=== PATIENT | female | born 2000 | race Caucasian/White ===

== ENCOUNTER → 2020-09-19 | Outpatient (CLI) | payer MEDICAID, SELFPAY ==
[2020-09-19 14:53] VITALS: BMI 26.6
[2020-09-23 22:01] LABS: HPV Reflexed? NOT INDICATED
== END | disposition home or self-care (01) ==
LOC: LABSPEC 16:28
PROVIDERS: Referring Provider Obstetrics & Gynecology; Visit Provider Obstetrics & Gynecology
DX: Z12.4 Encounter for screening for malignant neoplasm of cervix (principal)
CPT/HCPCS: 88175; G0145

== ENCOUNTER → 2020-09-26 10:43 | Outpatient (CLI) | payer MEDICAID, SELFPAY ==
[2020-09-19 13:41] VITALS: BMI 26.6
[2020-09-19 14:53] VITALS: BMI 26.6
--- NOTE | 2020-09-26 10:45 | US_ITS ---
STUDY: ULTRASOUND OF THE FEMALE PELVIS - COMPLETE REASON FOR EXAM: Female, 19 years old. PELVIC PAIN WITH INTERCOURSE AND MENSES. IUD PLACED IN 2017. LMP: 09/04/2020. TECHNIQUE: Transabdominal and Transvaginal TECHNICAL QUALITY: Adequate. COMPARISON: None. FINDINGS: The uterus is anteverted and is in a midline position. The uterus measures 7.1 x 6.1 x 3.6 cm. Suggestion of 2 subtle nabothian cysts. The endometrium measures 3.8 mm in thickness, and is hyperechoic. There is no demonstrated endometrial mass. There is no demonstrated myometrial mass. I.U.D. - The patient does have an I.U.D. The right ovary is visualized. The right ovary measures 1.9 x 2.3 x 1.9 cm. Within the right ovary there is a hypoechoic cystic structure with internal echoes and surrounding color flow most likely representing collapsing hemorrhagic versus corpus luteum cyst and measuring 0.9 x 2.8 x 1.9 cm. There is no visualized right adnexal mass or complex lesion. There is normal arterial and normal venous vascularity. The left ovary is visualized. The left ovary measures 1.9 x 1.1 x 1.5 cm. There is no left ovarian cyst or ovarian mass. There is no visualized left adnexal mass or complex lesion. There is normal arterial and normal venous vascularity. There is mild fluid in the cul-de-sac. The volume of the bladder was 184 ml. US/Transvaginal Non- IMPRESSION: Mild free fluid in the cul-de-sac. IUD in place, otherwise unremarkable female pelvis ultrasound. Electronically Signed: Zohra Kovacs MD at 0:39 EST , Service support ,
--- NOTE | 2020-09-26 10:45 | US_ITS ---
STUDY: ULTRASOUND OF THE FEMALE PELVIS - COMPLETE REASON FOR EXAM: Female, 19 years old. PELVIC PAIN WITH INTERCOURSE AND MENSES. IUD PLACED IN 2017. LMP: 09/04/2020. TECHNIQUE: Transabdominal and Transvaginal TECHNICAL QUALITY: Adequate. COMPARISON: None. FINDINGS: The uterus is anteverted and is in a midline position. The uterus measures 7.1 x 6.1 x 3.6 cm. Suggestion of 2 subtle nabothian cysts. The endometrium measures 3.8 mm in thickness, and is hyperechoic. There is no demonstrated endometrial mass. There is no demonstrated myometrial mass. I.U.D. - The patient does have an I.U.D. The right ovary is visualized. The right ovary measures 1.9 x 2.3 x 1.9 cm. Within the right ovary there is a hypoechoic cystic structure with internal echoes and surrounding color flow most likely representing collapsing hemorrhagic versus corpus luteum cyst and measuring 0.9 x 2.8 x 1.9 cm. There is no visualized right adnexal mass or complex lesion. There is normal arterial and normal venous vascularity. The left ovary is visualized. The left ovary measures 1.9 x 1.1 x 1.5 cm. There is no left ovarian cyst or ovarian mass. There is no visualized left adnexal mass or complex lesion. There is normal arterial and normal venous vascularity. There is mild fluid in the cul-de-sac. The volume of the bladder was 184 ml. US/Pelvic (Non ) IMPRESSION: Mild free fluid in the cul-de-sac. IUD in place, otherwise unremarkable female pelvis ultrasound. Electronically Signed: Zohra Kovacs MD at 0:39 EST , Service support ,
== END ==
PROVIDERS: Referring Provider Obstetrics & Gynecology; Visit Provider Obstetrics & Gynecology
DX: R10.2 Pelvic and perineal pain (principal)
CPT/HCPCS: 76830; 76856; 93976

== ENCOUNTER → 2020-09-27 08:42 | Outpatient (CLI) | payer MEDICAID, SELFPAY ==
[2020-09-19 13:41] VITALS: BMI 26.6
[2020-09-19 14:53] VITALS: BMI 26.6
--- NOTE | 2020-09-27 09:00 | US_ITS ---
STUDY: ULTRASOUND BREAST - RIGHT REASON FOR EXAM: Female, 19 years old. 2 lumps in the right breast. TECHNIQUE: Axial and longitudinal images of the RIGHT breast were performed with a high resolution ultrasound transducer. # OF IMAGES: 34 COMPARISON: None. FINDINGS: RIGHT Breast: There is a 2.5 cm x 2.1 cm x 1.9 cm hypoechoic solid nodule with evidence of posterior acoustical enhancement and vascularity at the 9 o''clock position of the breast at 3 cm from the nipple. A similar appearing nodule measuring 1.6 x 1.6 cm x 1.3 cm is seen in the retroareolar region. These may represent fibroadenomas. Biopsy is recommended. US/Breast Limited Unilateral IMPRESSION: 2 hypoechoic solid nodules with the posterior acoustical enhancement as described. The larger measures 2.5 cm x 2.1 DELMAR by 1.1 cm. This is at the 9 o''clock position breast at 3 cm from the nipple. Biopsy is recommended. ASSESSMENT CATEGORY: BIRADS Category 4: Suspicious - Biopsy Should Be Considered. A letter regarding these results will be sent to the patient by the facility within 30 days. Electronically Signed: Zurdo Saldivar, at 10:19 EST , Service support ,
== END ==
PROVIDERS: Referring Provider Obstetrics & Gynecology; Visit Provider Obstetrics & Gynecology
DX: N63.10 Unspecified lump in the right breast, unspecified quadrant (principal)
CPT/HCPCS: 76642

== ENCOUNTER → 2020-10-04 | Outpatient (CLI) | payer MEDICAID, SELFPAY ==
--- NOTE | 2020-10-04 | BRBX_PTH ---
PATIENT: JORDAN PEARSON LOC: [facility] U#:[id number] AGE/SX: 19/F ROOM: RE10/04/[address]: Dr. Marjorie Michelle MD : 2000 BED: DIS: 10/04/2020 SPEC #: [id number] RECD: 10/04/20 12:00 STATUS: DOLORES NATHAN #: [id number] VIKTOR: 10/04/20 00:[address]: Marjorie Michelle DEPT: SURGICAL PATHOLOGY RECD BY: Ranulfo Conrad ENTERED: 10/04/20 12:00 SP TYPE: BREAST BX OTHR DR: No Primary Care Phys Tissues: A - Right breast, NOS B - Right breast, NOS Procedures: Surgery Specimen Level IV HEADER OPERATION: Right breast biopsy x2 PRE-OP DIAGNOSIS: Right breast lump TISSUE SUBMITTED: A - Right breast 3 o'clock retroareolar, B - Right breast 3 o'clock, 3 cm from nipple FIXATION TIME: 10 hours MICROSCOPIC DIAGNOSIS A. Right breast, 3 o'clock, retroareolar, biopsy: Fibroadenoma/benign phyllodes tumor. Negative for atypia or malignancy. B. Right breast, 3 o'clock, 3 cm from nipple, biopsy: Fibroadenoma. Negative for atypia or malignancy. SJ:russ 10/05/20 COMMENT Correlation with clinical, radiologic findings and appropriate follow up are necessary. MICROSCOPIC DESCRIPTION Slides are reviewed. GROSS DESCRIPTION A - Received in fixative is one container labeled with the patient's name and designated right breast 3 o'clock. The specimen consists of multiple irregular and elongated fragments of light villa-yellow soft tissue that in aggregate measure 1.5 x 1 x 0.1 cm. The specimen is totally submitted in one cassette. B - Received in fixative is one container labeled with the patient's name and designated right breast 9 o'clock. The specimen consists of multiple irregular and elongated fragments of light villa-yellow soft tissue that in aggregate measure 1 x 1 x 0.1 cm. The specimen is totally submitted in one cassette. / AM:russ 10/04/20 TC:1 CPT: 05774 x2 ADDENDUM ADDENDUM ADDENDUM ADDENDUM ADDENDUM ADDENDUM ADDENDUM ADDENDUM ADDENDUM 10/25/2020 09:44 ADDENDUM 10/25/2020 09:44 ADDENDUM 10/25/2020 09:44 ADDENDUM 10/25/2020 09:44 ADDENDUM 10/25/2020 09:44 This addendum is added to incorporate an outside pathology consultation report. The case was examined at [facility] (#[id number]) and the following diagnosis was rendered. A. Cellular fibroadenoma. B. Fibroadenoma. Please see complete above mentioned consultation report in EMR
[2020-10-04 09:37] VITALS: BMI 25.0
== END | disposition home or self-care (01) ==
LOC: LABSPEC 11:36
PROVIDERS: Referring Provider Surgery; Visit Provider Surgery
DX: N63.10 Unspecified lump in the right breast, unspecified quadrant (principal)
CPT/HCPCS: 88305

== ENCOUNTER 2020-11-21 09:16 | Day surgery (SDC) | payer MEDICAID, SELFPAY ==
[2020-10-04 09:37] VITALS: BMI 25.0
[2020-11-21] VITALS (8 sets, daily range): BP systolic 105–134; BP diastolic 64–90; PULSE 84–112; RESP 16–18; TEMP 36.6–37.2; O2SAT 94–100; BMI 26.9
--- NOTE | 2020-11-21 05:00 | HP_ITS ---
Intake Intake Visit Reasons: DISCUSS SURGERY Chief Complaint: post breast surgery [employer] Required: No Is patient in pain?: No Allergies No Known Allergies Allergy (Verified 11/14/20 10:38) Is last menstrual period known: No Post menopausal: No Patient : No Subjective Details: Discussed with patient that with a second opinion for both right breast lesions were fibroadenoma. Patient states that the retroareolar 1 has been occasionally causing her some discomfort she was concerned about breast-feeding with having that there. Objective Details: Right breast about 3:00/at the areolar border mobile/firm mass about 1.5 cm, another mobile/firm mass about 2 cm at 9:00 3 cm from the nipple, mildly tender to palpation, no change in overlying skin. Assessment & Plan Problems 1. 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 Plan for excision of right breast fibroadenomas x2. Reviewed the procedure as well as risks including but not limited to bleeding, infection, initial nipple discharge after surgery. Also discussed with patient that potentially she could have issues breast-feeding afterwards but we would plan to avoid the the majority of the ducts retroareolar as possible when removing the fibroadenoma. Patient no further questions this time. Plan to schedule in November. Marjorie Michelle M.D. Pager: [phone] [facility] [address] [place] [address], [address] [place] [address] Office: [phone] Plan Detail Follow Up We will schedule excision of fibroadenomas x2. 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 There are no clinical changes since date of exam.
[2020-11-21 10:06] LABS: Internal QC Validated? YES +Cl - CLEAR BKGD; Pregnancy, Urine Negative Negative; Record Kit Lot#,Urine Preg 42077
[2020-11-21] MEDS: Lactated Ringers 1,000 ML 100 ML IV ×2 (10:21→11:45)
[2020-11-21] MEDS: Bupiv/Epi 0.25% 30 ML Vial (10:40)
[2020-11-21] MEDS: Cefazolin 2 GM in 0.9% Normal Saline 100 ML IV (11:00)
--- NOTE | 2020-11-21 11:00 | SOF_PTH ---
PATIENT: JRODAN PEARSON LOC: [facility] U#:[id number] AGE/SX: 20/F ROOM: RE11/21/[address]: Dr. Marjorie Michelle MD : 2000 BED: DIS: 11/21/2020 SPEC #: [id number] RECD: 11/21/20 12:34 STATUS: DOLORES RENicanor #: [id number] VIKTOR: 11/21/20 11:[address]: Marjorie Michelle DEPT: SURGICAL PATHOLOGY RECD BY: Jocelyn Simon ENTERED: 11/21/20 13:01 SP TYPE: SOFT TISS OTHR DR: No Primary Care Phys Tissues: A - Breast, NOS B - Breast, NOS Procedures: Surgery Specimen Level IV HEADER OPERATION: Excision fibroadenoma breast x2 PRE-OP DIAGNOSIS: Fibroadenoma right breast TISSUE SUBMITTED: A - Retroareolar at 4 o'clock fibroadenoma, B - 4 cm from nipple at 10 o'clock fibroadenoma MICROSCOPIC DIAGNOSIS A. Right breast, retroareolar region at 4 o'clock, excisional biopsy: Fibroadenoma. Changes of previous biopsy. B. Right breast, 4 cm from nipple at 10 o'clock, excisional biopsy: Fibroadenoma. AM:russ 11/22/2020 COMMENT Case has been reviewed in consultation with Dr. Deras who concurs with the above diagnosis. IDC:SJ MICROSCOPIC DESCRIPTION Slides are reviewed. GROSS DESCRIPTION A - Received in fixative is one container labeled with the patient's name and designated retroareolar at 4 o'clock fibroadenoma. The specimen consists of a nodular piece of villa soft tissue measuring 2 x 2 x 1.5 cm. The specimen is inked, serially sectioned and reveals villa, solid cut surfaces. The entire specimen is submitted in three cassettes. B - Received in fixative is one container labeled with the patient's name and designated 4 cm from nipple at 10 o'clock fibroadenoma. The specimen consists of a nodular piece of villa soft tissue measuring 3 x 3 x 2 cm. Sutures are noted, however, the specimen is not oriented. The specimen is inked, serially sectioned and reveals villa, solid cut surfaces without area of hemorrhage, necrosis or cystic degeneration. The entire specimen is submitted in six cassettes from one end to another end. / PHU:russ 11/21/20 TC:1 CPT: 42342 x2
--- NOTE | 2020-11-21 11:47 | PCM.OPRPT ---
Report of Operation Date of Procedure: 11/21/20 Pre-Operative Diagnosis: Right breast fibroadenoma x2 Post-Operative Diagnosis: Same Surgery/Procedure Performed:: Excision of right breast fibroadenoma x2 lodging manager: Sandra Benites Type of Anesthesia:: General/Supplemental Anesthesiologist: Mingo Valera Special Medications: Ancef 2 g IV x1 Specimen's removed: 1. Fibroadenoma retroareolar 4:00, 2. fibroadenoma 10:00 3 cm from the nipple Estimated Blood Loss (mL): < 10 cc Fluids Replaced: 1200 cc Description of Procedure: Indications: 20-year-old female with right breast fibroadenomas which were bothersome/painful especially the 1 retroareolar, patient wanted them excised. Description: Patient was brought into the operating room table placed supine. General anesthesia was induced. Timeout was completed verifying correct patient, procedure, site, positioning, special, prior to beginning procedure. Patient's right breast was prepped and draped in usual sterile fashion. The fibroadenomas were localized with palpation. For the first fibroadenoma which was retroareolar incision was made along the areolar border from 3:00 to 5:00 with a 15 blade scalpel.. This was deepened silk suture was placed for traction and the fibroadenoma. Electrocautery was used for excision. This fibroadenoma measured approximately 1.5 x 1.5 x 1.7 cm and was sent to pathology. The wound was irrigated and hemostasis was assured with electrocautery. A next fibroadenoma was done similarly this was located about 10:00 3 cm from the nipple a radial incision was made overlying the area with a 15 blade scalpel. This was deepened with electrocautery. Silk suture was used for traction on the fibroadenoma. This fibroadenoma measured approximately 2.5 x 2.75 x 2.5 cm and was sent to pathology. This space was closed using a interrupted 3-0 Vicryl suture after wound was irrigated. Hemostasis was assured. Incision closed with subdermal 3-0 Vicryl and skin was closed with 4 oh Monocryl running suture. The exofin glue was placed over incisions. An Hayden wraps were used to dress the area. Patient was taken to postanesthesia care unit in stable condition. - Complications none
--- NOTE | 2020-11-21 11:56 | PCM.DC.GS ---
Discharge Diet: Light diet - advance as tolerated Discharge Activity: May not drive while taking narcotic pain medications., May Shower Lifting Restrictions: > 20 lb w right arm x 1 week Additional Activity Instructions:: Wearing good compression bra for the first couple days and nights. Then okay to just wear during the day for the first week Call your doctor if your incision/area has: Continuous Slow Oozing, Sudden Increased Bleeding, Increased Pain/ Swelling, Increased Redness, Foul Smelling Discharge, Swelling at the incision site Call your doctor if you observe: Fever of 101 or Higher Allergies/Adverse Reactions: Allergies No Known Allergies Allergy (Verified 11/21/20 09:50) Medications to take at Discharge ibuprofen 800 mg tablet 800 mg PO Q8H PRN #30 tab 09/19/20 levonorgestrel 20 mcg/24 hours (6 yrs) 52 mg intrauterine device 1 device INTRAUTERINE ONCE 09/19/20 biotin 1 mg tablet 1 mg PO DAILY 10/04/20 Oxycodone HCl/Acetaminophen [Percocet 5/325] 1 tablet PO Q6H PRN PRN 3 Days #7 tablet 11/21/20 The following prescriptions were given: Oxycodone HCl/Acetaminophen [Percocet 5/325] 1 tablet PO Q6H PRN PRN 3 Days #7 tablet PRN Reason: Pain Transmission Status: Sent to [facility] Primary Care Physician: Care Physician,No Primary [Primary Care Provider] - Test Results: Test results from this visit will be discussed in further detail at your follow-up appointment, if applicable. Please Follow Up With: Marjorie Michelle MD - Pain concerns at 5:00 and on the weekends call [phone] with any concerns When: Call the office for a follow-up appointment in 2 weeks. Proposed Discharge Date: 11/21/20
[2020-11-21] MEDS: Acetaminophen 325 MG Tablet PO (13:48)
[2020-11-21] MEDS: oxyCODONE 5 MG Tablet PO (13:48)
== END 2020-11-21 15:00 | disposition home or self-care (01) ==
LOC: SDC 09:26 → AC 09:28
PROVIDERS: Anesthesiology; Referring Provider Surgery; Visit Provider Surgery
PROC: (CPT 19120; principal; 2020-11-21 10:45)
DX: D24.1 Benign neoplasm of right breast (principal); N64.4 Mastodynia; Z20.822 Contact with and (suspected) exposure to COVID-19
CPT/HCPCS: 00400; 19120 ×2; 81025; 87426; 88305; C9803; J7120; J2405

== ENCOUNTER → 2022-08-06 | Outpatient (CLI) | payer MEDICAID, SELFPAY ==
[2022-08-06 15:29] LABS: Absolute Lymphocyte Count 2.04 X10^3/uL (0.83-4.51); Absolute Neutrophil Count 5.6 X10^3/uL (2.0-7.7); Basophil# 0.05 X10^3/uL; Basophil% 0.6 % (0-1); Eosinophil# 0.45 X10^3/uL; Hematocrit 40.1 % (37-47); Hemoglobin 13.7 g/dL (12.0-15.0); Lymphocyte # 2.04 X10^3/ul (0.83-4.51); Lymphocyte % 22.7 % (19-41); Mean Corp Hgb Conc 34.2 g/dL (32-36); Mean Corpuscular Hgb 30.7 pg (27.0-32.0); Mean Corpuscular Volume 89.9 fL (81-99); Mean Platelet Vol. 9.7 fl (6.2-12.0); Monocyte# 0.78 X10^3/uL; Monocyte% 8.7 % (0-10); NRBC Flagged by Analyzer 0 % (0-5); Neutrophil # 5.61 X10^3/uL (2.7-7.7); Neutrophil % 62.6 % (47-70); Platelet Count 303 K/mm3 (150-450); RBC Distribution Width CV 12.1 % (11.6-14.6); RBC Distribution Width SD 40.1 fl (35.1-43.9); Red Blood Count 4.46 M/mm3 (4.2-5.4)
[2022-08-06 15:55] LABS: AST(SGOT) 15 U/L (15-37); Alanine Aminotransfer ALT/SGPT 23 U/L (13-56); Albumin, Serum 3.9 g/dL (3.2-5.0); Alkaline Phosphatase 85 U/L (45-117); Anion Gap 7 (5-15); BUN 10 mg/dL (7-18); BUN/Creat Ratio 9.8 RATIO (10-20); Calcium,Total 9.3 mg/dL (8.5-10.1); Chloride 107 mmol/L (98-107); Creatinine, Serum 1.02 mg/dL (0.55-1.02); EST Glomerular Filtration Rate 71 mL/min (>60); Est Glom Filt Rate - Afr Amer 86 mL/min (>60); Globulin 3.9 g/dL (2.2-4.2); Glucose 95 mg/dL (74-106); Potassium 3.9 mmol/L (3.5-5.1); Protein, Total 7.8 g/dL (6.4-8.2); Sodium Level 139 mmol/L (136-145)
== END | disposition home or self-care (01) ==
LOC: BIMLAB 13:51
PROVIDERS: Visit Provider Internal Medicine
DX: K29.70 Gastritis, unspecified, without bleeding (principal); R10.9 Unspecified abdominal pain
CPT/HCPCS: 36415; 80053; 85025

== ENCOUNTER → 2022-08-08 | Outpatient (CLI) | payer MEDICAID, SELFPAY ==
--- NOTE | 2022-08-08 09:21 | EKG12_ITS ---
Test Reason : PALPS Blood Pressure : / mmHG Vent. Rate : 088 BPM Atrial Rate : 088 BPM P-R Int : 120 ms QRS Dur : 090 ms QT Int : 372 ms P-R-T Axes : 010 004 018 degrees QTc Int : 450 ms Normal sinus rhythm with sinus arrhythmia Normal ECG Confirmed by MONTY BROWN, FLOR ([id number]), multimedia editor KAILEE MILLS ([id number]) on 08/09/2022 9:48:38 AM Referred By: Esther Garcia Confirmed By:FLOR MILLAN MD
== END | disposition home or self-care (01) ==
PROVIDERS: PCP Internal Medicine; Referring Provider Internal Medicine; Visit Provider Internal Medicine
DX: I10 Essential (primary) hypertension (principal)
CPT/HCPCS: 93005

== ENCOUNTER → 2022-09-17 | Outpatient (CLI) | payer MEDICAID, SELFPAY ==
[2022-09-17 12:36] LABS: T4 Free Direct 0.82 ng/dL (0.76-1.46); Thyroid Stim Hormone (TSH) 2.05 uIU/mL (0.358-3.74)
== END | disposition home or self-care (01) ==
LOC: BIMLAB 11:08
PROVIDERS: PCP Internal Medicine; Referring Provider Internal Medicine; Visit Provider Internal Medicine
DX: L65.9 Nonscarring hair loss, unspecified (principal)
CPT/HCPCS: 36415; 84439; 84443

== ENCOUNTER 2022-09-23 08:52 | Emergency (ER) | payer MEDICAID, SELFPAY ==
[2022-09-23 08:53] VITALS: BP 131/86; PULSE 98; RESP 16; TEMP 37.2; O2SAT 100; BMI 26.1
--- NOTE | 2022-09-23 09:20 | CT_ITS ---
STUDY: CT BRAIN WITHOUT CONTRAST REASON FOR EXAM: Female, 21 years old.severe headache SEVERE MCDUFFIE X 3 DAYS, HX-MIGRAINES RADIATION DOSAGE (If Supplied By Facility): CTDIvol = ( 44.99 ) mGy, DLP = ( 745.49 ) mGycm TECHNIQUE: Transaxial CT imaging of the brain was performed without administration of intravenous contrast material. Individualized dose optimization techniques were used for this CT. COMPARISON: None. FINDINGS: Normal soft tissue structures. Normal calvarium. Normal size ventricles and extra-axial spaces for the patient''s age. Normal white matter tracts of the cerebral hemispheres. Normal basal ganglia and thalami. Normal brainstem. Normal cerebellum. There is no intracranial hemorrhage. There are no findings of an acute ischemic infarction. Normal visualized paranasal sinuses. CT/Brain/Head without Contrast IMPRESSION: Normal unenhanced CT scan of the brain. Electronically Signed: Ayaz Arteaga MD at 10:19 EST ,
[2022-09-23] MEDS: Metoclopramide 10 MG/2 ML Vial IV (09:26)
[2022-09-23] MEDS: 0.9% Normal Saline 1,000 ML 999 ML IV (09:26)
[2022-09-23] MEDS: Ketorolac 30 MG/ML Syringe IV (09:26)
--- NOTE | 2022-09-23 09:26 | EX.ED.VIS.HA ---
HPI History of Present Illness Chief Complaint: Headache Informant: patient Onset/Context/Timing Onset: Days (3) Context: Gradual and Onset Timing: Continuous Quality -Headache: Positive for Throbbing Location: Bifrontal and right retro-orbital; radiates into occipital Current Severity: Severe Maximum Severity: Severe Worsened by: Light Relieved by: Nothing Associated Symptoms/Injury Associated Symptoms: Positive for Nausea, Blurred Vision and Photophobia; Negative for Fever, Vomiting, Sore Throat, Sinus Pressure, Numbness, Tingling or Visual Loss Injury - MCDUFFIE: Negative for Direct Trauma or Fall Narrative Narrative: Patient presents with a severe headache. She states she was at work 3 days ago, she works with children, she felt tired and within 30 minutes she started getting this headache, it was not severe suddenly, nor did she feel a thunderclap. However it became severe, to the point where her children making noise and light was really making the headache feel worse. She has not been able to get it to go away with [id number] medications in the last 3 days. She states she has never experienced a headache like this but admits that she has a history of migraines, she just has not had 1 in over a year, and cannot really remember what they felt like for her because of that. Last time she had to go to the ED for a headache was 4 years ago. Her mother has a history of a brain tumor she does not know what type but knows it is not malignant, there is no family history of cerebral aneurysms that the patient is aware of. She denies any peripheral neurologic symptoms, neck stiffness, fevers or chills, confusion. [facility] Medical History Abdominal pain Anxiety Gastritis GERD (gastroesophageal reflux disease) Hx of migraines Hypertension Lump of right breast Non-scarring hair loss Scoliosis Home Medications levonorgestrel 20 mcg/24 hours (8 yrs) 52 mg intrauterine device (Mirena) 1 device intrauterine ONCE 09/19/20 [History Last Taken Unknown] pantoprazole 40 mg tablet,delayed release 40 mg PO DAILY #30 tabs 09/20/22 [Rx Last Taken Unknown] sucralfate 1 gram tablet (Carafate) 1 g PO QACHS 2 weeks #56 tabs 09/20/22 [Rx Last Taken Unknown] metoclopramide HCl 10 mg tablet 10 mg PO Q6H PRN nausea or migraine #20 tabs 09/23/22 [Rx Last Taken Unknown] Allergy/AdvReac Type Severity Reaction Status Date / Time No Known Allergies Allergy Verified 09/23/22 08:52 Family History Mother Brain tumor Allergy to nuts Father Asthma Arthritis AA (alcohol abuse) Hypertension Grandmother Lung cancer Thyroid cancer Melanoma other (no known cerebral aneurysms) Surgical History History of use of contraceptive intrauterine device (IUD) Hx of right breast biopsy Status post breast lumpectomy Social History household members: spouse housing: house current occupational status: employed current occupation: Student and [employer] sexually active: Yes Smoking Status: Never smoker alcohol intake: current alcohol intake frequency: holidays/special occasions only details: occasionally substance use type: does not use caffeine: Yes what type of physical activity do you participate in: walking, running and weight training frequency: 3-4 times per week seatbelt use: always do you feel safe at home: Yes additional social history: -[place] Patient goes to [employer] and works at [employer] Constitutional Constitutional ED: Denies chills or fever(s) Eyes Eyes: Reports blurry vision; Denies diplopia ENT ENT ED: Denies ear pain, rhinorrhea or sore throat Cardiovascular Cardiovascular: Denies chest pain or palpitations Respiratory/Chest Respiratory/Chest: Denies cough or dyspnea Gastrointestinal Gastrointestinal: Reports nausea; Denies abdominal pain, diarrhea or vomiting Genitourinary Genitourinary ED: Denies dysuria or urinary frequency Musculoskeletal Musculoskeletal: Denies back pain or myalgias Integumentary Denies abscess or rash Neurologic Neurologic: Reports headache(s); Denies paresthesias or weakness EXAM Physical Exam Const Vital Signs: 09/23/22 08:53 Temperature 99.0 F Temperature Source Temporal Pulse Rate 98 Respiratory Rate 16 Blood Pressure 131/86 H Blood Pressure Mean 101 Pulse Ox 100 Oxygen Delivery Method Room Air Positive well nourished and well developed Constitutional Narrative: Smiling, conversive, pleasant, very well-appearing General Appearance ED: well developed and NAD HEENT Reports normocephalic and moist mucous membranes atraumatic Eyes PERRL, EOMs intact bilaterally and conjunctivae normal Eyes Narrative: photophobia Neck no lymphadenopathy, supple and no meningeal signs Neck Narrative: F ROM Resp normal respiratory effort and clear to auscultation bilaterally GI non-tender and non-distended Palpation: soft Extremity normal to inspection and full ROM Neuro oriented x3 and CN's II-XII intact bilaterally Sensorium / Orientation: awake and alert Speech: speech normal Gait (Neuro): normal gait Motor Exam: strength 5/5 throughout Psych mental status grossly normal Skin Lesions: no lesions Rashes: no rashes MDM MDM MDM Narrative Medical decision making narrative: Patient's symptoms and exam are consistent with migraine, but we did a head CT because of the fact that this is the worst headache she has ever had and she did have an occipital component. It is negative for subarachnoid hemorrhage or obvious radiopaque mass on unenhanced scan. Discussed that with her, she is feeling better after IV fluids, Toradol, Reglan, she did not get akathisia and she is comfortable going home. She used to be on a beta-alex to prevent migraines, if she continues to have more frequent ones she is encouraged to follow-up for reevaluation for this, and I will prescribe her Reglan to use at home as needed. Radiography Diagnostic Testing: Clinical Impression(s) from Imaging Studies Brain CT 09/23/22 09:20 IMPRESSION: Normal unenhanced CT scan of the brain. Electronically Signed: Ayaz Arteaga MD at 10:19 EST Reading Location ID and State: [facility] / [place] , Service support , Discharge Plan Triage Chief Complaint: Headache ED Provider: Nelson Sharp Dx/Rx/DC Orders Clinical Impression: Headache, migraine Instructions: ED, Migraine (Classical) Prescriptions: New metoclopramide HCl [metoclopramide HCl] 10 MG tablet 10 mg PO Q6H PRN (Reason: nausea or migraine) Qty: 20 0RF No Action levonorgestrel 20 mcg/24 hours (5 yrs) 52 mg intrauterine device 20 mcg/24 hours (5 yrs) 52 mg intrauterine device 1 device intrauterine ONCE Rx Instructions: as a single dose sucralfate [Carafate] 1 gram tablet 1 g PO QACHS 14 Days Qty: 56 2RF pantoprazole 40 mg tablet,delayed release (DR/EC) 40 mg PO DAILY Qty: 30 6RF Primary Care Provider: Esther Garcia Referrals: Esther Garcia MD [Primary Care Provider] - 3-5 Days if not improving Disposition Disposition: Home, Self Care
[2022-09-23 11:20] VITALS: BP 127/82; PULSE 70; RESP 16; O2SAT 99
== END 2022-09-23 11:25 | disposition home or self-care (01) ==
PROVIDERS: Emergency Provider Emergency Medicine; PCP Internal Medicine; Visit Provider Emergency Medicine
DX: G43.909 Migraine, unspecified, not intractable, without status migrainosus (principal); I10 Essential (primary) hypertension
CPT/HCPCS: 70450; 96361; 96374; 96375; 99283; J7030; A4216

== ENCOUNTER 2022-10-03 07:42 | Day surgery (SDC) | payer MEDICAID, SELFPAY ==
--- NOTE | 2022-10-03 07:49 | HP.PCM_ITS ---
History and Physical Date of Admission: 10/03/22 Date of Service:? 09/20/22 MR#: [id number] Acct: [id number] Name:JORDAN CASANOVA Rep #: [id number] : 2000 ? ? Provider: Dr. Marjorie Michelle MD Age/Sex:? 21/F ? ? [place] [facility] [place] [facility] [place]: Signed Intake Vital Signs ? 08/06/2213:25 09/20/2214:05 Height 5 ft 5 in 5 ft 5 in Weight: ? 159 lb BMI ? 26.4 BP ? 124/83 H Blood Pressure Location ? Rt brachial Position ? Sitting Respiration ? 16 Pulse ? 86 Pulse Source ? Monitor Temp ? 97.8 F Temp Source ? Temporal Pulse Oximetry (%) ? 100 Oxygen Delivery Method ? 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 Abdominal pain Anxiety Gastritis GERD (gastroesophageal reflux disease) Hx of migraines Hypertension Lump of right breast Non-scarring hair loss Scoliosis Surgical History? History of use of contraceptive intrauterine device (IUD) Hx of right breast biopsy Status post breast lumpectomy Family History?(Updated 09/20/22 @ 14:00 by Shanon Saturday) Mother Brain tumor Allergy to nutsFather Asthma Arthritis AA (alcohol abuse) HypertensionGrandmother Lung cancer Thyroid cancer Melanoma Social History? household members:? spouse housing:? house current occupational status:? 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 Yes Smoking Status:? Never smoker alcohol intake:? current alcohol intake frequency: holidays/special occasions only details:? occasionally substance use type:? does not use caffeine:? Yes what type of physical activity do you participate in:? walking, running and weight training frequency:? 3-4 times per week seatbelt use:? always do you feel safe at home:? Yes additional social history:? -[place] Patient goes to [employer] and works at [employer] ? HPI HPI HPI: 21-year-old female presents due to epigastric pain and reflux.? Patient states that this has been ongoing over the last 7 months.? Patient states for the first 5 months she states his controlled fairly well with Pepto-Bismol and Tums.? Patient states it was worse over the last 2 months.? Patient was started on omeprazole 40 mg p.o. daily August 06 by her PCP.? Patient states that her reflux symptoms with burning up her esophagus has improved however she still has the epigastric pain occasional burning and bloating.? Patient states that the pain is premature constant 3/7 and can get up to a 7/10 in the epigastric region .? Patient's never had a previous EGD.? Patient's PCP did call him Carafate however currently her pharmacy is unable to feel this due to her backorder. ROS General General: No weight change, appetite, fatigue, colon cancer, breast cancer or weakness HEENT HEENT: No difficulty swallowing, eye injury, eye surgery, swollen glands or hoar seness Endo Endocrine: No thyroid disease, diabetes mellitus, thyroid cancer, Hair loss, heat intolerance or cold intolerance Skin Skin: No rash or changing moles Musc Musculoskeletal: No back problems, arthritis, rheumatoid arthritis, gout or joint pain Cardio Cardiovascular: No murmur, pacemaker, heart disease, atrial fibrillation, high blood pressure, heart attack, heart stent, palpitations, shortness of breat with exertion or chest pain Psych Psychiatric: No depression, anxiety or hearing voices Resp Respiratory: No shortness of breath, No sleep apnea, No cough, No COPD, No asthma, No emphysema and No wheezing Gastro Gastrointestinal: Yes abdominal pain, Yes nausea or vomiting, No diarrhea, No constipation, No blood in stool, Yes acid reflux, No hemorrhoids, No ulcers, No gallbladder problem and No black,tarry stools Nathan Hematologic: No blood thinners, No blood disorders, No bleeding, No anemia and No blood clots Neuro Neurologic: No system reviewed and no additional complaints, except as documented, No as per HPI, No abnormal gait, No abnormal hearing, No abnormal movements, No abnormal speech, No behavioral changes, No burning sensations, No confusion, No convulsions, No disequilibrium, No dizziness, No localized weakness, No frequent falls, No headache(s), No lack of coordination, No loss of vision, No memory loss, No numbness, No other visual disturbances, No radicular pain, No restless legs, No sensory deficit, No syncope, No tingling, No tremor(s), No weakness and No other Exam Const General: cooperative, healthy appearing and no acute distress HENMT Head: normal to inspection Resp Effort & Inspection: normal respiratory effort Cardio Rate: regular rate GI Inspection: non-distended Palpation: soft, no guarding, no hernias and nontender Skin General: no rashes or lesions noted Neuro General: patient oriented x3 Extrem General: no clubbing, cyanosis or edema Psych Affect: normal affect Assessment and Plan Assessment and Plan (1) GERD (gastroesophageal reflux disease): ?Status:?Chronic ? ? ? Medications: New pantoprazole 40 mg? PO DAILY 30 tabs 6RF ? ? Refilled sucralfate (Carafate) 1 g? PO QACHS 2 weeks 56 tabs 2RF ? ? Discontinued omeprazole ?? Discontinued Reason:? Order Changed 40 mg? PO DAILY 90 caps 1RF ? ? Plan Did change patient from omeprazole 40 mg to Protonix 40 mg daily.? Also was able to call the Carafate into her pharmacy at the hospital as they do have it in stock. I have discussed the above with the patient. I have offered the patient esophagogastroduodenoscopy for evaluation. I have explained the risks/benefits of the procedure and described the procedure.? I have discussed the risks with the patient, including but not limited to:? infection, bleeding, perforation of the GI tract requiring emergency surgery, inability to complete the procedure, injury to any internal organs, complications of anesthesia, etc. - the patient understands and agrees to proceed. I have answered all the patient's questions to the patient's satisfaction and the patient has no further questions. Marjorie Michelle M.D. Pager: [phone] [facility] [address] [place] [address], [facility], [address] [place] [address] Office: [phone] Coding Level of Care Code Off vis,est,level 3 Diagnoses GERD (gastroesophageal reflux disease)? K21.9 09/20/22 1624 <Electronically signed by Marjorie Michelle MD> Date Marjorie Michelle MD
[2022-10-03] MEDS: Lactated Ringers 1,000 ML 15 ML IV (08:14)
[2022-10-03 08:16] VITALS: BP 110/71; PULSE 85; RESP 18; TEMP 36.4; O2SAT 100; BMI 25.6
[2022-10-03 08:17] LABS: Internal QC Validated? YES +Cl - CLEAR BKGD; Pregnancy, Urine Negative Negative
--- NOTE | 2022-10-03 09:30 | IMM_PTH ---
PATIENT: JORDAN PEARSON LOC: EN U#:[id number] AGE/SX: ROOM: RE10/03/[address]: Dr. Marjorie Michelle MD : 2000 BED: DIS: 10/03/2022 SPEC #: [id number] RECD: 10/03/22 12:24 STATUS: DOLORES REQ #: [id number] VIKTOR: 10/03/22 09:[address]: Marjorie Michelle DEPT: IMMUNOHISTOCHEMISTRY RECD BY: Keysha Mckenzie ENTERED: 10/03/22 12:25 SP TYPE: IMMUNO OTHR DR: Dr. Esther Garcia MD Tissues: A - Stomach, NOS Procedures: H Pylori (initial) PHYSICIAN & [place] [id number] SPECIMEN INFORMATION: Tissue Source: A ? Antrum biopsy Clinical Info: GERD Specimen Number: [id number] CPT code: 48205 METHODOLOGY: Deparaffinized sections of prefer/formalin-fixed tissue or PAP/DQ stained slides are incubated with monoclonal/polyclonal antibodies/oligonucleotide probes. Localization is made via biotin free immunoperoxidase method. Appropriate controls are performed and reacted as expected. Results on target cell population are indicated in the following table: RESULTS: ANTIBODY / CLONE RESULT Block A H Pylori (polyclonal) negative These tests were developed and their performance characteristics determined by [facility]. They may not have been cleared or approved by the U.S. Food and Drug Administration. The FDA has determined that such clearance or approval is not necessary. The above immunohistochemical/dualISH markers are ordered and reviewed by the Pathologist. INTERPRETATION: A. Antrum, biopsy: Negative for Helicobacter pylori organisms. SJ:russ 10/05/2022
--- NOTE | 2022-10-03 09:30 | EGD_PTH ---
PATIENT: JORDAN PEARSON LOC: EN U#:[id number] AGE/SX: ROOM: RE10/03/[address]: Dr. Marjorie Michelle MD : 2000 BED: DIS: 10/03/2022 SPEC #: [id number] RECD: 10/03/22 10:34 STATUS: DOLORES RENicanor #: [id number] VIKTOR: 10/03/22 09:[address]: Marjorie Michelle DEPT: SURGICAL PATHOLOGY RECD BY: Jocelyn Simon ENTERED: 10/03/22 11:10 SP TYPE: EGD BIOPSY OT DR: Dr. Esther Garcia MD Tissues: A - Gastric mucous membrane B - Stomach, NOS Procedures: Special Stain Group II Surgery Specimen Level IV Alcian Blue/PAS (control) HEADER OPERATION: EGD ([employer] [facility] [employer]) with biopsies PRE-OP DIAGNOSIS: GERD TISSUE SUBMITTED: A - Antrum biopsy for H. pylori and histology, B - Gastroesophageal junction biopsy MICROSCOPIC DIAGNOSIS A. Antrum, biopsy: Moderate chronic gastritis. See comment. B. Gastroesophageal junction, biopsy: Fragments of gastric mucosa with chronic inflammation. Intestinal metaplasia (goblet cell metaplasia) not identified. See comment. SJ:rg 10/05/2022 COMMENT A. Inflammatory cell infiltrate predominantly consists of eosinophils. The results of immunohistochemistry for Helicobacter pylori will be reported separately ([id number]). B. Alcian blue/PAS stain with matched control is used in the evaluation of the specimen. MICROSCOPIC DESCRIPTION Slides are reviewed. GROSS DESCRIPTION A - Received in fixative is one container labeled with the patient's name and designated antrum biopsy. The specimen consists of two irregular fragments of light villa soft tissue that in aggregate measure 0.5 x 0.5 x 0.1 cm. The specimen is totally submitted in one cassette. B - Received in fixative is one container labeled with the patient's name and designated GE junction biopsy. The specimen consists of two irregular fragments of light villa soft tissue that in aggregate measure 0.5 x 0.2 x 0.1 cm. The specimen is totally submitted in one cassette. / PHU:russ 10/03/2022 TC:3 CPT: 16683 x2, 14813
[2022-10-03 10:30] VITALS: BP 110/71; BP 111/68; PULSE 85; RESP 16; TEMP 37.3; O2SAT 98
--- NOTE | 2022-10-03 10:34 | OP.EGD_ITS ---
Patient Name: Keyla Carranza Procedure Date: 10/03/2022 10:12 AM Date of : 2000 Age: 21 Procedure: Upper GI endoscopy Indications: Epigastric abdominal pain, Heartburn Providers: Marjorie Michelle MD Referring MD: Esther Garcia MD Medicines: Monitored Anesthesia Care Patient Profile: This is a 21 year old female. Complications: No immediate complications. Procedure: Pre-Anesthesia Assessment: - Prior to the procedure, a History and Physical was performed, and patient medications and allergies were reviewed. The patient's tolerance of previous anesthesia was also reviewed. The risks and benefits of the procedure and the sedation options and risks were discussed with the patient. All questions were answered, and informed consent was obtained. Prior Anticoagulants: The patient has taken no previous anticoagulant or antiplatelet agents. ASA Grade Assessment: Per anesthesia. After reviewing the risks and benefits, the patient was deemed in satisfactory condition to undergo the procedure. After obtaining informed consent, the endoscope was passed under direct vision. Throughout the procedure, the patient's blood pressure, pulse, and oxygen saturations were monitored continuously. The gastroscope was introduced through the mouth, and advanced to the second part of duodenum. The upper GI endoscopy was accomplished without difficulty. The patient tolerated the procedure well. Scope In: 10:18:03 AM Scope Out: 10:23:45 AM Total Procedure Duration Time 0 hours 5 minutes 42 seconds Findings: The Z-line was irregular and was found 40 cm from the incisors. Biopsies were taken with a cold forceps for histology. Localized moderate mucosal changes characterized by altered texture were found in the gastric antrum. Biopsies were taken with a cold forceps for histology. Biopsies were taken with a cold forceps for Helicobacter pylori cultures. The cardia and gastric fundus were normal on retroflexion. The examined duodenum was normal. Impression: - Z-line irregular, 40 cm from the incisors. Biopsied. - Texture changed mucosa in the antrum. Biopsied. - Normal examined duodenum. Recommendation: - Await pathology results. - Discharge patient to home. - Resume previous diet. - Continue present medications. - Use Protonix (pantoprazole) 40 mg PO BID for 1 week. Procedure Code(s): --- Professional --- 04001, Esophagogastroduodenoscopy, flexible, transoral; with biopsy, single or multiple Diagnosis Code(s): --- Professional --- K22.8, Other specified diseases of esophagus K31.89, Other diseases of stomach and duodenum R10.13, Epigastric pain R12, Heartburn CPT copyright 2017 [employer] [employer]. All rights reserved. The codes documented in this report are preliminary and upon ed special education teacher review may be revised to meet current compliance requirements. MD Marjorie Bueno MD 10/03/2022 10:33:49 AM This report has been signed electronically. Number of Addenda: 0 Note Initiated On: 10/03/2022 10:12 AM
[2022-10-03 10:35] VITALS: BP 105/63; BP 110/71; PULSE 83; RESP 16; O2SAT 94
--- NOTE | 2022-10-03 10:35 | OP.CCLET_ITS ---
10/03/2022 Esther Garcia MD [address] [place] [address] [place] [address] Re : Upper GI endoscopy procedure for Keyla Carranza Dear Dr. Garcia This procedure was performed on Monday, October 03, 2022. My impressions and recommendations are as follows: Impressions : - Z-line irregular, 40 cm from the incisors. Biopsied. - Texture changed mucosa in the antrum. Biopsied. - Normal examined duodenum. Recommendations : - Await pathology results. - Discharge patient to home. - Resume previous diet. - Continue present medications. - Use Protonix (pantoprazole) 40 mg PO BID for 1 week. My findings are described in the full procedure note, which is enclosed. If I can be of further assistance, please feel free to contact me at Doctor phone number(s): , Work: . Sincerely, MD Marjorie Bueno MD 10/03/2022 10:33:49 AM This report has been signed electronically.
[2022-10-03 10:40] VITALS: BP 110/71; BP 89/66; PULSE 58; RESP 16; O2SAT 57
[2022-10-03 10:45] VITALS: BP 103/65; BP 110/71; RESP 16; TEMP 36.6; O2SAT 99
[2022-10-03 11:05] VITALS: BP 110/71
== END 2022-10-03 11:30 | disposition home or self-care (01) ==
LOC: EN 07:43 → AC 07:43
PROVIDERS: Anesthesiology; PCP Internal Medicine; Referring Provider Internal Medicine; Visit Provider Surgery
PROC: 0DJ08ZZ Inspection of Upper Intestinal Tract, Via Natural or Artificial Opening Endoscopic (ICD-10-PCS; CPT 43235; principal; 2022-10-03 09:25)
DX: K21.9 Gastro-esophageal reflux disease without esophagitis (principal); K29.50 Unspecified chronic gastritis without bleeding; F41.9 Anxiety disorder, unspecified; I10 Essential (primary) hypertension; M41.9 Scoliosis, unspecified; Z79.899 Other long term (current) drug therapy
CPT/HCPCS: 43239; 81025; 88305; 88313; 88342; J7120; J2405

== ENCOUNTER → 2025-02-10 | Outpatient (CLI) | payer BC, SELFPAY ==
[2025-02-10 16:45] LABS: Absolute Lymphocyte Count 2.06 X10^3/uL (0.83-4.51); Absolute Neutrophil Count 3.7 X10^3/uL (2.0-7.7); Basophil# 0.02 X10^3/uL; Basophil% 0.3 % (0-1); Eosinophil# 0.46 X10^3/uL; Eosinophils% 6.7 % (0-5); Hematocrit 35.8 % (37-47); Hemoglobin 12.6 g/dL (12.0-15.0); Lymphocyte # 2.06 X10^3/ul (0.83-4.51); Lymphocyte % 29.9 % (19-41); Mean Corp Hgb Conc 35.2 g/dL (32-36); Mean Corpuscular Hgb 30.3 pg (27.0-32.0); Mean Corpuscular Volume 86.1 fL (81-99); Mean Platelet Vol. 8.9 fl (6.2-12.0); Monocyte# 0.59 X10^3/uL; Monocyte% 8.6 % (0-10); NRBC Flagged by Analyzer 0 % (0-5); Neutrophil # 3.74 X10^3/uL (2.7-7.7); Neutrophil % 54.2 % (47-70); Platelet Count 251 K/mm3 (150-450); RBC Distribution Width CV 12.2 % (11.6-14.6); RBC Distribution Width SD 38.8 fl (35.1-43.9); Red Blood Count 4.16 M/mm3 (4.2-5.4); White Blood Count 6.9 K/mm3 (4.4-11.0)
[2025-02-10 17:13] LABS: Ferritin 121 ng/mL (22-378)
[2025-02-10 17:59] LABS: ALB/GLOB Ratio 1.5 RATIO (0.9-2.4); AST(SGOT) 22 U/L (<=31); Alanine Aminotransfer ALT/SGPT 14 U/L (<=34); Albumin, Serum 4.6 g/dL (3.5-5.0); Alkaline Phosphatase 70 U/L (35-104); Anion Gap 12 (5-15); BUN 12 mg/dL (4-19); BUN/Creat Ratio 15.2 RATIO (10-20); Calcium,Total 9.6 mg/dL (7.6-11.0); Carbon Dioxide 24.2 mmol/L (21.0-32.0); Chloride 105 mmol/L (98-108); Creatinine, Serum 0.77 mg/dL (0.70-1.20); EST Glomerular Filtration Rate 109 (>60); Globulin 3.1 g/dL (2.2-4.2); Glucose 94 mg/dL (70-99); Potassium 4.3 mmol/L (3.3-5.1); Protein, Total 7.7 g/dL (5.9-8.4); Sodium Level 141 mmol/L (133-145); Total Bilirubin 0.31 mg/dL (0.00-1.30)
[2025-02-10 19:14] LABS: Iron 56 ug/dL (50-170); Iron Binding Capacity,Total 257 ug/dL (250-450); Iron Binding Capacity,Unsat 201 ug/dL (228-428)
== END | disposition home or self-care (01) ==
LOC: BIMLAB 15:54
PROVIDERS: PCP Internal Medicine; Referring Provider Internal Medicine; Visit Provider Internal Medicine
DX: Z00.00 Encounter for general adult medical examination without abnormal findings (principal); L65.9 Nonscarring hair loss, unspecified; K21.9 Gastro-esophageal reflux disease without esophagitis
CPT/HCPCS: 36415; 80053; 82728; 83540; 83550; 84439; 84443; 85025

== ENCOUNTER 2025-04-26 11:51 | Emergency (ER) | payer BC, SELFPAY ==
[2025-04-26 11:52] VITALS: BP 124/82; PULSE 75; RESP 18; TEMP 36.9; O2SAT 99; BMI 23.6
== END 2025-04-26 12:40 | disposition left against medical advice (07) ==
LOC: ED 12:41
PROVIDERS: PCP Internal Medicine
DX: Z53.21 Procedure and treatment not carried out due to patient leaving prior to being seen by health care provider (principal)